=== PATIENT | male | born 1975 | race Hispanic/Latino ===

== ENCOUNTER 2025-03-25 15:57 | Emergency (ER) | payer BC ==
[~2025-03-25] VITALS: Ht 182.9 cm; Wt 113.4 kg
[2025-03-25 17:43] VITALS: RESP 16; TEMP 98
[2025-03-25] MEDS ORDERED: KETOROLAC TROMETHAMINE 30 MG/ML VIAL ONE (20:07)
[2025-03-25 20:09] LABS: BASOPHILS % 0.6 % (0.0-1.0); EOSINOPHILS % 0.4 % (0.0-6.0); LYMPHOCYTES % 18.5 % (18.0-39.1); MONOCYTES % 7.0 % (4.4-11.3); NEUTROPHILS % 73.2 % (38.7-80.0); RED CELL DISTRIBUTION WIDTH 13.1 % (11.7-14.4)
[2025-03-25] MEDS: SODIUM CHLORIDE 0.9% 1000ML 1,000 ML IV ONE (20:16)
[2025-03-25] MEDS: KETOROLAC TROMETHAMINE 30 MG/ML VIAL IV STA (20:33)
[2025-03-25 20:34] LABS: EST GLOMERULAR FILTRATION RATE 91.0 ML/MIN (>=60)
[2025-03-25] MEDS ORDERED: IOPAMIDOL 370 MG/ML 100 ML INFUS..BTL INJ ONE (21:33)
[2025-03-25] MEDS ORDERED: ORPHENADRINE C100 MG PO (23:49)
[2025-03-25] MEDS ORDERED: MEDROL4 M2 PO (23:49)
[2025-03-25 23:52] VITALS: PULSE 92
[2025-03-26 00:06] VITALS: BP 187/114; PULSE 92; O2SAT 95
== END 2025-03-26 00:09 | disposition home or self-care (01) ==
LOC: ER 19:17
DX: R10.11 Right upper quadrant pain (principal); S39.011A Strain of muscle, fascia and tendon of abdomen, initial encounter; I10 Essential (primary) hypertension
CPT/HCPCS: 36415; 74177; 80053; 85025; 99284; J1885; J7030; Q9967